=== PATIENT | male | born 1990 | race American Indian/Alaskan Native ===

== ENCOUNTER 2019-01-20 07:36 | Emergency (ER) | payer SELFPAY ==
[2019-01-20 07:42] VITALS: BP 115/48
--- NOTE | 2019-01-20 08:09 | XRay Report ---
ROUTINE CHEST, TWO VIEWS: HISTORY: chest pain. The trachea, heart, mediastinal contour, lung [place] and bony thorax are unremarkable. IMPRESSION: Unremarkable chest x-ray.
[2019-01-20 09:33] LABS: Basophils % (Auto) 0.7 % (0.0-1.8); Hematocrit 45.5 % (35.5-45.6); Hemoglobin 15.8 gm/dl (11.8-15.2); Lymphocytes # (Auto) 1.6 K/mm3 (1.2-5.4); Lymphocytes % (Auto) 31.1 % (13.4-35.0); Mean Corpuscular HGB Conc 35 % (32-34); Mean Corpuscular Volume 98 fl (84-94); Monocytes # (Auto) 0.4 K/mm3 (0.0-0.8); Monocytes % (Auto) 8.6 % (0.0-7.3); Platelet Count 189 K/mm3 (140-440); Red Blood Count 4.65 M/mm3 (3.65-5.03); Red Cell Distribution Width 12.8 % (13.2-15.2)
[2019-01-20 09:53] LABS: Alanine Aminotransferase 15 units/L (7-56); Albumin 4.7 g/dL (3.9-5); BUN/Creatinine Ratio 7; Blood Urea Nitrogen 6 mg/dL (9-20); Calcium 9.2 mg/dL (8.4-10.2); Hemolysis Index 8
[2019-01-20 10:00] LABS: Bilirubin,Direct < 0.2 mg/dL (0-0.2)
[2019-01-20 10:17] LABS: Bilirubin,Urine NEG (Negative); Blood,Urine NEG (Negative); Color,Urine Straw (Yellow); Protein,Urine <15 mg/dL mg/dL (Negative); Urobilinogen,Urine < 2.0 mg/dL (<2.0); WBC,Urine < 1.0 /HPF (0.0-6.0)
[2019-01-20 10:18] LABS: INR 1.28 (0.87-1.13)
[2019-01-20 10:19] LABS: Partial Thromboplastin Time 30.1 Sec. (24.2-36.6)
--- NOTE | 2019-01-20 10:31 | Emergency Department Report ---
ED Abdominal Pain HPI - General Chief Complaint: Abdominal Pain Stated Complaint: CHEST/ABD PAIN Time Seen by Provider: 01/20/19 08:12 Source: patient Mode of arrival: Ambulatory Limitations: No Limitations - History of Present Illness Initial Comments: 28 yo M reports diffuse abdominal pain x 5 days. Denies N/V/D, fever, urinary frequency. Also reports chest pain and SOB over the last 2 days, w/ associated full body shaking during the episode. Pt states this has been happening over the last month. Reports associated feeling of doom. States wondered if it could be anxiety. No previous hx, but pt states he has been stressed and working a lot vicki funes MD Complaint: abdominal pain -: days(s) (5) Location: diffuse Radiation: none Migration to: no migration Severity: moderate Quality: cramping Consistency: intermittent Improves With: nothing Worsens With: nothing Associated Symptoms: denies: nausea, vomiting, diarrhea, fever, constipation, dysuria - Related Data Previous Rx's Medication Instructions Recorded Last Taken Type Dicyclomine [Bentyl] 20 mg PO QID PRN #20 tablet 01/20/19 Unknown Rx Naproxen [Naprosyn] 500 mg PO BID #20 tablet 01/20/19 Unknown Rx Allergies Allergy/AdvReac Type Severity Reaction Status Date / Time No Known Allergies Allergy Unverified 01/20/19 07:38 ED Review of Systems ROS: Stated complaint: CHEST/ABD PAIN Other details as noted in HPI Comment: All other systems reviewed and negative Constitutional: denies: chills, fever Respiratory: shortness of breath Cardiovascular: chest pain Gastrointestinal: abdominal pain. denies: nausea, vomiting Musculoskeletal: other (reports leg swelling) Psychiatric: anxiety ED Past Medical Hx - Past Medical History Previous Medical History?: No - Surgical History Additional Surgical History: rt knee - Social History Smoking Status: Never Smoker Substance Use Type: None - Medications Home Medications: Home Medications Medication Instructions Recorded Confirmed Last Taken Type Dicyclomine [Bentyl] 20 mg PO QID PRN #20 tablet 01/20/19 Unknown Rx Naproxen [Naprosyn] 500 mg PO BID #20 tablet 01/20/19 Unknown Rx ED Physical Exam - General Limitations: No Limitations General appearance: alert, in no apparent distress - Head Head exam: Present: atraumatic, normocephalic - Eye Eye exam: Present: normal appearance - ENT ENT exam: Present: mucous membranes moist - Neck Neck exam: Present: normal inspection - Respiratory Respiratory exam: Present: normal lung sounds bilaterally, chest wall tenderness. Absent: respiratory distress - Cardiovascular Cardiovascular Exam: Present: normal rhythm, bradycardia - GI/Abdominal GI/Abdominal exam: Present: soft. Absent: distended, tenderness - Extremities Exam Extremities exam: Present: normal inspection. Absent: pedal edema, calf tenderness - Neurological Exam Neurological exam: Present: alert, oriented X3 - Psychiatric Psychiatric exam: Present: normal affect, normal mood - Skin Skin exam: Present: warm, dry, intact, normal color. Absent: rash ED Course Vital Signs 01/20/19 07:38 Temperature 97.6 F Pulse Rate 55 L Respiratory 16 Rate Blood Pressure 115/48 O2 Sat by Pulse 99 Oximetry ED Medical Decision Making - Lab Data Result diagrams: 01/20/19 09:08 01/20/19 09:08 - EKG Data -: EKG Interpreted by Pa EKG shows normal: sinus rhythm, axis, intervals, QRS complexes, ST-T waves Rate: bradycardia (rate 52) - EKG Data Interpretation: no acute changes - Radiology Data Radiology results: report reviewed, image reviewed - Medical Decision Making - all labs normal - vitals normal - pt drinking tea in room - pt in no resp distress - chest wall tenderness on exam - likely anxiety component as well - EKG, CXR, d-dimer normal - rx for naprosyn given - outpt f/u advised - Differential Diagnosis anxiety, uti, PE, PTX Critical care attestation.: If time is entered above; I have spent that time in minutes in the direct care of this critically ill patient, excluding procedure time. ED Disposition Clinical Impression: Chest pain, Abdominal pain Disposition: - TO HOME OR SELFCARE Is pt being admited?: No Condition: Stable Instructions: Chest Pain (ED), Costochondritis (ED), Abdominal Pain (ED), Anxiety (ED) Prescriptions: Dicyclomine [Bentyl] 20 mg PO QID PRN #20 tablet PRN Reason: abdominal pain Naproxen [Naprosyn] 500 mg PO BID #20 tablet Referrals: KIERSTEN ORTEGA MD [Primary Care Provider] - 3-5 Days Time of Disposition: 10:31
== END 2019-01-20 10:45 | disposition home or self-care (01) ==
LOC: ED 07:36
DX: R10.84 Generalized abdominal pain (principal); R07.89 Other chest pain; R06.02 Shortness of breath
CPT/HCPCS: 36415; 71045; 80048; 80076; 81001; 84484; 85025; 85379; 85610; 85730; 93005; 93010

== ENCOUNTER 2019-09-29 19:12 | Emergency (ER) | payer SELFPAY ==
[2019-09-29 21:09] VITALS: BP 119/66
--- NOTE | 2019-09-30 00:42 | Emergency Department Report ---
ED Upper Extremity Inj HPI - General Chief Complaint: Shoulder Injury Stated Complaint: LT SHOULDER PAIN/CX PAIN BLISTERS Source: patient Mode of arrival: Ambulatory Limitations: No Limitations - History of Present Illness Initial Comments: Patient is a 29-year-old male with a history of chronic shoulder pain from weightlifting who presented to the ED with worsening left shoulder and left lateral neck pain that radiates to the left posterior upper back and left lateral chest wall after weightlifting. Patient denies fall, traumatic injury, dizziness, chest pain, shortness of breath, numbness and tingling or weakness of upper extremities bilaterally, low back pain, change in vision or headache and abdominal pain. MD Complaint: Injury to:: left, shoulder -: Gradual, days(s) (2), month(s) (12) Other Extremity Injury: Shoulder: Left (pain that radiates to neck, upper back and chest wall) Other Injuries: chest (left lateral chest wall) Handedness: right Place: home Severity scale (0 -10): 7 Improves With: none Worsens With: movement of extremity Context: injury, other (heavy lifting and work out in Gym) Associated Symptoms: denies other symptoms, neck pain. denies: weakness, numbness, suspects foreign body, nausea/vomiting, heard/felt popping sensat - Related Data Previous Rx's Medication Instructions Recorded Last Taken Type Dicyclomine [Bentyl] 20 mg PO QID PRN #20 tablet 01/20/19 Unknown Rx Naproxen [Naprosyn] 500 mg PO BID #20 tablet 01/20/19 Unknown Rx Gabapentin 300 mg PO Q12H #20 cap 09/30/19 Unknown Rx Ibuprofen [Motrin] 800 mg PO Q8HR PRN #24 tablet 09/30/19 Unknown Rx predniSONE [Deltasone] 60 mg PO QDAY #15 tab 09/30/19 Unknown Rx tiZANidine [Zanaflex 4mg TAB] 4 mg PO Q8H PRN #15 tablet 09/30/19 Unknown Rx Allergies Allergy/AdvReac Type Severity Reaction Status Date / Time No Known Allergies Allergy Unverified 01/20/19 07:38 ED Review of Systems ROS: Stated complaint: LT SHOULDER PAIN/CX PAIN BLISTERS Other details as noted in HPI Constitutional: denies: chills, fever Eyes: denies: eye pain, eye discharge, vision change ENT: denies: ear pain, throat pain Respiratory: denies: cough, shortness of breath, wheezing Cardiovascular: chest pain (Left chest wall pain). denies: palpitations Endocrine: no symptoms reported Gastrointestinal: denies: abdominal pain, nausea, diarrhea Genitourinary: denies: urgency, dysuria Musculoskeletal: back pain (Left upper arm posterior thoracic pain), arthralgia (Palpable left shoulder and upper arm pain), myalgia. denies: joint swelling Skin: denies: rash, lesions Neurological: denies: headache, weakness, paresthesias Psychiatric: denies: anxiety, depression Hematological/Lymphatic: denies: easy bleeding, easy bruising ED Past Medical Hx - Past Medical History Previous Medical History?: No - Surgical History Past Surgical History?: Yes Additional Surgical History: rt knee - Social History Smoking Status: Never Smoker Substance Use Type: None - Medications Home Medications: Home Medications Medication Instructions Recorded Confirmed Last Taken Type Dicyclomine [Bentyl] 20 mg PO QID PRN #20 tablet 01/20/19 Unknown Rx Naproxen [Naprosyn] 500 mg PO BID #20 tablet 01/20/19 Unknown Rx Gabapentin 300 mg PO Q12H #20 cap 09/30/19 Unknown Rx Ibuprofen [Motrin] 800 mg PO Q8HR PRN #24 tablet 09/30/19 Unknown Rx predniSONE [Deltasone] 60 mg PO QDAY #15 tab 09/30/19 Unknown Rx tiZANidine [Zanaflex 4mg TAB] 4 mg PO Q8H PRN #15 tablet 09/30/19 Unknown Rx ED Physical Exam - General Limitations: No Limitations General appearance: alert, in no apparent distress - Head Head exam: Present: atraumatic, normocephalic, normal inspection - Eye Eye exam: Present: normal appearance, PERRL, EOMI Pupils: Present: normal accommodation - ENT ENT exam: Present: normal exam, normal orophraynx, mucous membranes moist, TM's normal bilaterally, normal external ear exam - Neck Neck exam: Present: normal inspection, tenderness (Palpable left lateral sternocleidomastoid tenderness), full ROM - Respiratory Respiratory exam: Present: normal lung sounds bilaterally, chest wall tenderness (Palpable left chest wall tenderness). Absent: respiratory distress, wheezes, rales, rhonchi, accessory muscle use, decreased breath sounds - Cardiovascular Cardiovascular Exam: Present: regular rate, normal rhythm, normal heart sounds. Absent: systolic murmur, diastolic murmur, rubs, gallop - GI/Abdominal GI/Abdominal exam: Present: soft, normal bowel sounds. Absent: tenderness, hyperactive bowel sounds, hypoactive bowel sounds - Extremities Exam Extremities exam: Present: normal inspection, full ROM, tenderness (Palpable left shoulder and left upper arm tenderness), normal capillary refill - Back Exam Back exam: Present: normal inspection, full ROM, tenderness (Palpable left upper posterior thoracic musculoskeletal tenderness), muscle spasm, paraspinal tenderness - Neurological Exam Neurological exam: Present: alert, oriented X3, CN II-XII intact, normal gait, reflexes normal - Psychiatric Psychiatric exam: Present: normal affect, normal mood - Skin Skin exam: Present: warm, dry, intact, normal color. Absent: rash ED Course Vital Signs 09/29/19 19:40 Temperature 98.6 F Pulse Rate 64 Respiratory 18 Rate Blood Pressure 119/66 O2 Sat by Pulse 100 Oximetry ED Medical Decision Making - Medical Decision Making This is a 29-year-old male who presented to the ED with worsening left shoulder and left lateral neck pain that radiates to the left posterior upper back and left lateral chest wall after weightlifting. In the ED, patient is alert and oriented x3 and is not in any distress but appears to be in pain. Patient was treated for pain in the ED and discharged home on pain medications and muscle relaxants. Patient was advised to follow-up with his primary care physician in 7 to 10 days for reevaluation or return to the ED immediately if symptoms get worse. - Differential Diagnosis shoulder sprain; Muscle strain; sternocleidomastoid strain; cervical strain Critical care attestation.: If time is entered above; I have spent that time in minutes in the direct care of this critically ill patient, excluding procedure time. ED Disposition Clinical Impression: Left cervical radiculopathy Sprain of left shoulder Qualifiers: Encounter type: initial encounter Shoulder sprain type: unspecified sprain Qualified Code(s): S43.402A - Unspecified sprain of left shoulder joint, initial encounter Strain of sternocleidomastoid muscle Qualifiers: Encounter type: initial encounter Qualified Code(s): S16.1XXA - Strain of muscle, fascia and tendon at neck level, initial encounter Disposition: DC-01 TO HOME OR SELFCARE Is pt being admited?: No Does the pt Need Aspirin: No Condition: Stable Instructions: Muscle Strain (ED), Shoulder Sprain (ED), Cervical Sprain (ED), Cervical Radiculopathy (ED) Additional Instructions: Your symptoms are due to muscle strain and nerve inflammation on the left arm and shoulder. Take medication with food, drink plenty of fluids and follow-up with your primary care physician in 5 to 7 days for reevaluation. Return to the ED immediately if symptoms get worse. Prescriptions: predniSONE [Deltasone] 60 mg PO QDAY #15 tab Gabapentin 300 mg PO Q12H #20 cap Ibuprofen [Motrin] 800 mg PO Q8HR PRN #24 tablet PRN Reason: Pain , Severe (7-10) tiZANidine [Zanaflex 4mg TAB] 4 mg PO Q8H PRN #15 tablet PRN Reason: Muscle Spasm Referrals: CASTRO CHACON MD [Staff Physician] - 7-10 days Forms: Work/School Release Form(ED) Time of Disposition: 00:44 Print Language: MARSHALLESE
== END 2019-09-30 01:04 | disposition home or self-care (01) ==
LOC: ED 19:12
DX: S16.1XXA Strain of muscle, fascia and tendon at neck level, initial encounter (principal); S43.402A Unspecified sprain of left shoulder joint, initial encounter; M54.12 Radiculopathy, cervical region; Z79.899 Other long term (current) drug therapy; X50.0XXA Overexertion from strenuous movement or load, initial encounter; Y93.89 Activity, other specified; Y92.89 Other specified places as the place of occurrence of the external cause; Y99.8 Other external cause status
CPT/HCPCS: 99281

== ENCOUNTER 2019-10-03 21:09 | Emergency (ER) | payer SELFPAY ==
--- NOTE | 2019-10-03 21:40 | Event Note ---
ED Screening Note Date of service: 10/03/19 Time: 21:38 ED Screening Note: Pt complains of left sided chest pain and SOB intermittently x 1 year, worsening x 4 days seen here 09/29/19 for same-states meds not helping and pain and SOB are worsening This initial assessment/diagnostic orders/clinical plan/treatment(s) is/are subject to change based on patients health status, clinical progression and re- assessment by fellow clinical providers in the ED. Further treatment and workup at subsequent clinical providers discretion. Patient/guardian urged not to elope from the ED as their condition may be serious if not clinically assessed and managed. Initial orders include: CXR labs
[2019-10-03 21:42] VITALS: BP 120/72
[2019-10-03 22:03] LABS: Basophils % (Auto) 0.4 % (0.0-1.8); Hematocrit 45.1 % (35.5-45.6); Lymphocytes # (Auto) 0.6 K/mm3 (1.2-5.4); Lymphocytes % (Auto) 10.3 % (13.4-35.0); Mean Corpuscular HGB Conc 36 % (32-34); Mean Corpuscular Volume 98 fl (84-94); Monocytes # (Auto) 0.1 K/mm3 (0.0-0.8); Monocytes % (Auto) 1.9 % (0.0-7.3); Platelet Count 207 K/mm3 (140-440); Red Blood Count 4.62 M/mm3 (3.65-5.03)
--- NOTE | 2019-10-03 22:22 | XRay Report ---
CHEST 2 VIEWS INDICATION / CLINICAL INFORMATION: left chest pain. COMPARISON: 01/20/19 FINDINGS: SUPPORT DEVICES: None. HEART / MEDIASTINUM: No significant abnormality. LUNGS / PLEURA: No significant pulmonary or pleural abnormality. No pneumothorax. ADDITIONAL FINDINGS: No significant additional findings. IMPRESSION: 1. No acute findings. No change. Signer Name: Franco Solorio MD Signed: 10/03/2019 10:18 PM Workstation Name: [id number]
[2019-10-03 22:40] LABS: Alanine Aminotransferase 12 units/L (7-56); Albumin 4.8 g/dL (3.9-5); BUN/Creatinine Ratio 9; Blood Urea Nitrogen 7 mg/dL (9-20); Calcium 9.6 mg/dL (8.4-10.2); Hemolysis Index 20
== END 2019-10-03 23:32 | disposition left against medical advice (07) ==
LOC: ED 21:09
DX: R07.9 Chest pain, unspecified (principal); Z53.21 Procedure and treatment not carried out due to patient leaving prior to being seen by health care provider
CPT/HCPCS: 36415; 71046; 80053; 84484; 85025; 93005; 93010

== ENCOUNTER 2019-10-07 12:16 | Emergency (ER) | payer SELFPAY ==
[2019-10-07 13:31] VITALS: BP 109/55
--- NOTE | 2019-10-07 18:58 | Emergency Department Report ---
{null, ED Extremity Problem HPI - General Chief complaint: Extremity Problem,Nontraumatic Stated complaint: LT LEG SWELLING Time Seen by Provider: 10/07/19 18:58 Source: patient Mode of arrival: Ambulatory Limitations: No Limitations - Related Data Previous Rx's Medication Instructions Recorded Last Taken Type Dicyclomine [Bentyl] 20 mg PO QID PRN #20 tablet 01/20/19 Unknown Rx Naproxen [Naprosyn] 500 mg PO BID #20 tablet 01/20/19 Unknown Rx Gabapentin 300 mg PO Q12H #20 cap 09/30/19 Unknown Rx Ibuprofen [Motrin] 800 mg PO Q8HR PRN #24 tablet 09/30/19 Unknown Rx predniSONE [Deltasone] 60 mg PO QDAY #15 tab 09/30/19 Unknown Rx tiZANidine [Zanaflex 4mg TAB] 4 mg PO Q8H PRN #15 tablet 09/30/19 Unknown Rx Allergies Allergy/AdvReac Type Severity Reaction Status Date / Time No Known Allergies Allergy Unverified 01/20/19 07:38 ED Review of Systems ROS: Stated complaint: LT LEG SWELLING Other details as noted in HPI ED Past Medical Hx - Past Medical History Previous Medical History?: No - Surgical History Past Surgical History?: Yes Additional Surgical History: rt knee r/t ACL - Social History Smoking Status: Unknown if ever smoked Substance Use Type: None - Medications Home Medications: Home Medications Medication Instructions Recorded Confirmed Last Taken Type Dicyclomine [Bentyl] 20 mg PO QID PRN #20 tablet 01/20/19 Unknown Rx Naproxen [Naprosyn] 500 mg PO BID #20 tablet 01/20/19 Unknown Rx Gabapentin 300 mg PO Q12H #20 cap 09/30/19 Unknown Rx Ibuprofen [Motrin] 800 mg PO Q8HR PRN #24 tablet 09/30/19 Unknown Rx predniSONE [Deltasone] 60 mg PO QDAY #15 tab 09/30/19 Unknown Rx tiZANidine [Zanaflex 4mg TAB] 4 mg PO Q8H PRN #15 tablet 09/30/19 Unknown Rx ED Physical Exam - General Limitations: No Limitations ED Course Vital Signs 10/07/19 13:30 Temperature 98.4 F Pulse Rate 68 Respiratory 18 Rate Blood Pressure 109/55 O2 Sat by Pulse 100 Oximetry Critical care attestation.: If time is entered above; I have spent that time in minutes in the direct care of this critically ill patient, excluding procedure time. ED Disposition Condition: Stable Referrals: PRIMARY CARE,MD [Primary Care Provider] - 3-5 Days }
--- NOTE | 2019-10-07 20:01 | Emergency Department Report ---
{null, Chief Complaint: Extremity Problem,Nontraumatic Stated Complaint: LT LEG SWELLING Time Seen by Provider: 10/07/19 18:58 - HPI History of Present Illness: 29-year-old -[place] male presents to the emergency room complaining of left shoulder blade pain he was here on the for the same complaint and reports he had a blister on the left lower leg and bilateral edema. 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 Patient denies any shortness of breath. Patient has no past medical history. Patient reports when he takes the Zanaflex and the gabapentin that he was prescribed with on 09/30/2019 it makes him too sleepy and is not able to operate a machine. Therefore patient has not taken medication. - Exam Vital Signs: Vital Signs 10/07/19 13:30 Temperature 98.4 F Pulse Rate 68 Respiratory 18 Rate Blood Pressure 109/55 O2 Sat by Pulse 100 Oximetry MSE screening note: Focused history and physical exam performed. Due to findings the following was ordered: 29-year-old -[place] male presents to the emergency room complaining of left shoulder blade pain he was here on the for the same complaint and reports he had a blister on the left lower leg and bilateral edema. 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 Patient denies any shortness of breath. Patient has no past medical history. Patient reports when he takes the Zanaflex and the gabapentin that he was prescribed with on 09/30/2019 it makes him too sleepy and is not able to operate a machine. Therefore patient has not taken medication. Discussed with patient that he needs to continue taking pain medication his blister on his left lateral leg he can put triple antibiotic cream and a loose bandage. Also discussed with patient he can wear support hoses while he is drives as this helps with the swelling to the lower extremities. Also reports the patient is sometimes taken prednisone can cause some lower leg swelling. ED Disposition for MSE Clinical Impression: Left cervical radiculopathy, Blister (nonthermal), left lower leg, initial encounter, Bilateral lower extremity edema Disposition: Z-07 MED SCREENING EXAM-LEFT Is pt being admited?: No Does the pt Need Aspirin: No Condition: Stable Additional Instructions: Discussed with patient that he needs to continue taking pain medication his blister on his left lateral leg he can put triple antibiotic cream and a loose bandage. Also discussed with patient he can wear support hoses while he is drives as this helps with the swelling to the lower extremities. Also reports the patient is sometimes taken prednisone can cause some lower leg swelling. Referrals: PRIMARY CARE, [Primary Care Provider] - 3-5 Days CASTRO CHACON MD [Staff Physician] - 3-5 Days [facility] [Provider Group] - 3-5 Days }
== END 2019-10-07 20:05 | disposition left against medical advice (07) ==
LOC: ED 12:16
DX: S80.822A Blister (nonthermal), left lower leg, initial encounter (principal); M54.12 Radiculopathy, cervical region; X58.XXXA Exposure to other specified factors, initial encounter; Y93.89 Activity, other specified; Y92.89 Other specified places as the place of occurrence of the external cause; Y99.8 Other external cause status
CPT/HCPCS: 99282

== ENCOUNTER 2020-08-17 17:51 | Emergency (ER) | payer SELFPAY ==
[2020-08-17 19:46] VITALS: BP 113/62
--- NOTE | 2020-08-17 20:52 | Emergency Department Report ---
ED ENT HPI - General Chief complaint: Earache Stated complaint: POSSIBLE EAR INFECTION Time Seen by Provider: 08/17/20 20:46 Source: patient, family Mode of arrival: Ambulatory Limitations: No Limitations - History of Present Illness Initial comments: The patient was evaluated in the emergency department for symptoms described in the history of present illness. He/she was evaluated in the context of the global COVID-19 pandemic, which necessitated consideration that the patient might be at risk for infection with the virus that causes COVID-19. In stitutional protocols and algorithms that pertain to the evaluation of patients at risk for COVID-19 are in a state of rapid change based on information released by regulatory bodies including the CDC and federal and state organizations. These policies and algorithms were followed during the patient's care in the emergency department. Please note that these policies, procedures and recommendations changed on a rapid basis. 30-year-old -[place] male presents to the emergency room for 2-day history of right ear pain and itching. Patient states the pain is worse when he pulls on his ear. He does admit to recently washing his hair. He states that he had some discharge coming from the ear. He tried some [id number] eardrops which he reports has not helped. Patient denies any tinnitus denies any decreased hearing. Patient denies any fever chills. MD complaint: ear pain Onset/Timin -: days(s) Location: R ear Severity: moderate Quality: stabbing, sharp Consistency: constant Worsens with: movement Context- Ear: other Associated Symptoms: discharge from ear. denies: fever (Recently washed his hair), cough, pain with swallowing, tinnitus, hearing loss - Related Data Previous Rx's Medication Instructions Recorded Last Taken Type Dicyclomine [Bentyl] 20 mg PO QID PRN #20 tablet 01/20/19 Unknown Rx Gabapentin 300 mg PO Q12H #20 cap 09/30/19 Unknown Rx Ibuprofen [Motrin] 800 mg PO Q8HR PRN #24 tablet 09/30/19 Unknown Rx tiZANidine [Zanaflex 4mg TAB] 4 mg PO Q8H PRN #15 tablet 09/30/19 Unknown Rx Naproxen [Naprosyn TAB] 500 mg PO Q12H PRN #30 tablet 03/29/20 Unknown Rx predniSONE [Deltasone] 60 mg PO QDAY #15 tab 03/29/20 Unknown Rx Neomyc/Colist/Hydrocort/Thonzn 4 drops AD BID 10 Days #1 bottle 08/17/20 Unknown Rx [Cortisporin-Tc Ear Suspension] Allergies Allergy/AdvReac Type Severity Reaction Status Date / Time No Known Allergies Allergy Unverified 01/20/19 07:38 ED Dental HPI - General Chief complaint: Earache Stated complaint: POSSIBLE EAR INFECTION Time Seen by Provider: 08/17/20 20:46 Source: patient, family Mode of arrival: Ambulatory Limitations: No Limitations - Related Data Previous Rx's Medication Instructions Recorded Last Taken Type Dicyclomine [Bentyl] 20 mg PO QID PRN #20 tablet 01/20/19 Unknown Rx Gabapentin 300 mg PO Q12H #20 cap 09/30/19 Unknown Rx Ibuprofen [Motrin] 800 mg PO Q8HR PRN #24 tablet 09/30/19 Unknown Rx tiZANidine [Zanaflex 4mg TAB] 4 mg PO Q8H PRN #15 tablet 09/30/19 Unknown Rx Naproxen [Naprosyn TAB] 500 mg PO Q12H PRN #30 tablet 03/29/20 Unknown Rx predniSONE [Deltasone] 60 mg PO QDAY #15 tab 03/29/20 Unknown Rx Neomyc/Colist/Hydrocort/Thonzn 4 drops AD BID 10 Days #1 bottle 08/17/20 Unknown Rx [Cortisporin-Tc Ear Suspension] Allergies Allergy/AdvReac Type Severity Reaction Status Date / Time No Known Allergies Allergy Unverified 01/20/19 07:38 ED Review of Systems ROS: Stated complaint: POSSIBLE EAR INFECTION Other details as noted in HPI Comment: All other systems reviewed and negative ED Past Medical Hx - Past Medical History Previous Medical History?: No - Surgical History Past Surgical History?: Yes Additional Surgical History: rt knee r/t ACL - Social History Smoking Status: Never Smoker Substance Use Type: None - Medications Home Medications: Home Medications Medication Instructions Recorded Confirmed Last Taken Type Dicyclomine [Bentyl] 20 mg PO QID PRN #20 tablet 01/20/19 Unknown Rx Gabapentin 300 mg PO Q12H #20 cap 09/30/19 Unknown Rx Ibuprofen [Motrin] 800 mg PO Q8HR PRN #24 tablet 09/30/19 Unknown Rx tiZANidine [Zanaflex 4mg TAB] 4 mg PO Q8H PRN #15 tablet 09/30/19 Unknown Rx Naproxen [Naprosyn TAB] 500 mg PO Q12H PRN #30 tablet 03/29/20 Unknown Rx predniSONE [Deltasone] 60 mg PO QDAY #15 tab 03/29/20 Unknown Rx Neomyc/Colist/Hydrocort/Thonzn 4 drops AD BID 10 Days #1 bottle 08/17/20 Unkno wn Rx [Cortisporin-Tc Ear Suspension] ED Physical Exam - General Limitations: No Limitations General appearance: alert, in no apparent distress - Head Head exam: Present: atraumatic, normocephalic - Eye Eye exam: Present: normal appearance - ENT ENT exam: Present: mucous membranes moist - Expanded ENT Exam Expanded TM/Canal exam: Canal Discharge: Right TM, Canal Tenderness: Right TM Mouth exam: Present: normal external inspection - Neck Neck exam: Present: normal inspection, full ROM - Extremities Exam Extremities exam: Present: normal inspection, full ROM - Back Exam Back exam: Present: normal inspection - Neurological Exam Neurological exam: Present: alert, oriented X3, normal gait - Psychiatric Psychiatric exam: Present: normal affect, normal mood - Skin Skin exam: Present: warm, dry, intact, normal color. Absent: rash ED Course Vital Signs 08/17/20 19:41 Temperature 98.2 F Pulse Rate 63 Respiratory 20 Rate Blood Pressure 113/62 O2 Sat by Pulse 100 Oximetry ED Medical Decision Making - Medical Decision Making 30-year-old -[place] male presents to the emergency room for 2-day history of right ear pain and itching. Patient states the pain is worse when he pulls on his ear. He does admit to recently washing his hair. He states that he had some discharge coming from the ear. He tried some [id number] eardrops which she reports has not helped. Patient denies any tinnitus denies any decreased hearing. Patient denies any fever chills. Discussed with patient discharged home on eardrops. Patient can take ibuprofen or Tylenol for pain management. Critical care attestation.: If time is entered above; I have spent that time in minutes in the direct care of this critically ill patient, excluding procedure time. ED Disposition Clinical Impression: Otitis externa Qualifiers: Otitis externa type: swimmer's ear Chronicity: acute Laterality: right Qualified Code(s): H60.331 - Swimmer's ear, right ear Disposition: DC-01 TO HOME OR SELFCARE Is pt being admited?: No Does the pt Need Aspirin: No Condition: Stable Instructions: Otitis Externa, [id number] Additional Instructions: Please use eardrops as prescribed. [id number] Tylenol or ibuprofen for pain management. Prescriptions: Neomyc/Colist/Hydrocort/Thonzn [Cortisporin-Tc Ear Suspension] 4 drops AD BID 10 Days #1 bottle Referrals: ANDRE ADHIKARI MD [Staff Physician] - 3-5 Days
== END 2020-08-17 21:57 | disposition home or self-care (01) ==
LOC: ED 17:51
DX: H60.91 Unspecified otitis externa, right ear (principal); Z79.899 Other long term (current) drug therapy; Z98.890 Other specified postprocedural states
CPT/HCPCS: 99282